=== PATIENT | male | born 1985 ===

== ENCOUNTER 2020-03-21 00:31 | Inpatient (IN) | payer OTHER ==
[~2020-03-21] VITALS: Ht 180.3 cm; Wt 117.5 kg
[2020-03-21 01:16] LABS: Source, Urine Voided
[2020-03-21 01:25] LABS: Bilirubin, Urine Neg (Neg); Blood, Urine 2+ (Neg); Glucose Qualitative, Urine Neg (Neg); Ketones, Urine Neg (Neg); Leukocyte Esterase, Urine Neg (Neg); Nitrite, Urine Neg (Neg); Protein, Urine 1+ (Neg); Urobilinogen, Urine NORM (Normal)
[2020-03-21 01:26] LABS: Appearance, Urine Clear (Clear); Color, Urine Yellow (P-Yellow)
[2020-03-21 01:32] LABS: Bacteria Rare /hpf; Red Blood Cells, Urine 0-2 /hpf (0-2); Squamous Epithelial Cells Not Seen /hpf (Few); White Blood Cells, Urine Rare /hpf (0-5)
[2020-03-21 01:44] LABS: BASOPHILS ABSOLUTE AUTO 0.04 K/mm3 (0.00-0.23); BASOPHILS PERCENT AUTO 0 % (0-2); EOSINOPHILS ABSOLUTE AUTO 0.13 K/mm3 (0.00-0.68); EOSINOPHILS PERCENT AUTO 1 % (0-6); Hematocrit 41.2 % (37.0-53.0); Hemoglobin 12.6 g/dL (13.5-17.5); IMMATURE GRAN PERCENT AUTO 1 % (0-1); LYMPHOCYTES ABSOLUTE AUTO 0.77 K/mm3 (0.84-5.20); LYMPHOCYTES PERCENT AUTO 5 % (21-46); MONOCYTES ABSOLUTE AUTO 1.31 K/mm3 (0.16-1.47); MONOCYTES PERCENT AUTO 8 % (4-13); Mean Corpuscular HGB 23.3 pg (26.0-34.0); Mean Corpuscular HGB Conc 30.6 g/dL (31.5-36.5); Mean Corpuscular Volume 76 fL (80-100); NEUTROPHILS ABSOLUTE AUTO 13.27 K/mm3 (1.96-9.15); NEUTROPHILS PERCENT AUTO 85 % (41-73); Platelet Count 274 K/mm3 (150-400); RDW Coefficient Variation 16.7 % (11.7-14.2); RDW Standard Deviation 45.1 fL (35.1-46.3); White Blood Cell Count 15.62 K/mm3 (4.00-11.30)
[2020-03-21 01:46] LABS: Alanine Aminotransfer (ALT/SGP 345 U/L (12-78); Albumin, Blood 3.9 g/dL (3.4-5.0); Albumin/Globulin Ratio 0.9 (0.8-1.8); Alk Phos 160 U/L (50-136); Anion Gap 6 mmol/L (6-16); Aspartate Aminotrans (AST/SGOT 214 U/L (12-37); Bilirubin, Total 3.2 mg/dL (0.1-1.0); Blood Urea Nitrogen 21 mg/dL (8-24); Bun/Creatinine Ratio 23.3 (12.0-20.0); CO2, Blood 26 mmol/L (21-32); Calcium, Blood 8.7 mg/dL (8.5-10.1); Chloride, Blood 108 mmol/L (98-108); Globulin, Blood 4.4 g/dL (2.2-4.0); Glomerular Filtration Rate >60 (60-); Glucose, Blood 129 mg/dL (70-99); Potassium, Blood 3.6 mmol/L (3.5-5.5); Sodium, Blood 140 mmol/L (136-145); Total Protein, Blood 8.3 g/dL (6.4-8.2)
[2020-03-21 04:13] LABS: CHOL/HDL RATIO 2.6; Cholesterol 120 mg/dL (50-200); HDL Cholesterol 46 mg/dL (>39); LDL/HDL RATIO 1.3; Low Density Lipoprotein Chol 62 mg/dL (0-110); Triglycerides 60 mg/dL (30-140); Very Low Density Lipoprot Chol 12 mg/dL (6-28)
--- NOTE | 2020-03-21 16:04 | NUR ---
ARRIVAL TO UNIT PT ARRIVED TO UNIT FROM ER AT APPROX 1550. PT TRANSFERED SELF FROM [facility], NO WEAKNESS NOTED. PT HAS EYES CLOSED WHILE IN BED REPORTS PAIN A CONSTANT 7/10. DENIES NAUSEA CURRENTLY. GF AT BEDSIDE. PT AA0X4. PAIN LOCALIZED IN EPIGASTRIC AREA. PT EDUCATED EMERGENCY ROOM PHYSICIAN LIGHT USE AND EDUCATED ON NPO STATUS. SWABS PROVIDED FOR COMFORT.
[2020-03-22 02:11] LABS: Influenza A, PCR Negative (NEGATIVE); Influenza B, PCR Negative (NEGATIVE); Resp Syncytial Virus, PCR Negative (NEGATIVE); SARS-Cov-2 (COVID-19) PCR, MMC Negative (NEGATIVE)
[2020-03-22 05:28] LABS: Alanine Aminotransfer (ALT/SGP 163 U/L (12-78); Albumin/Globulin Ratio 0.7 (0.8-1.8); Alk Phos 107 U/L (50-136); Anion Gap 5 mmol/L (6-16); Aspartate Aminotrans (AST/SGOT 46 U/L (12-37); Bilirubin, Total 1.4 mg/dL (0.1-1.0); Blood Urea Nitrogen 29 mg/dL (8-24); Bun/Creatinine Ratio 33.8 (12.0-20.0); CO2, Blood 27 mmol/L (21-32); Calcium, Blood 8.3 mg/dL (8.5-10.1); Chloride, Blood 109 mmol/L (98-108); Creatinine, Blood 0.86 mg/dL (0.60-1.20); Globulin, Blood 4.1 g/dL (2.2-4.0); Glomerular Filtration Rate >60 (60-); Glucose, Blood 133 mg/dL (70-99); Potassium, Blood 3.7 mmol/L (3.5-5.5); Sodium, Blood 141 mmol/L (136-145); Total Protein, Blood 7.1 g/dL (6.4-8.2)
--- NOTE | 2020-03-22 06:10 | NUR ---
SHIFT SUMMARY: BEULAH IS A&OX4. VSS, PT STATES BP ELEVATED D/T PAIN. HE REPORTS HE WAS ON BP MEDICATIONS PRIOR TO HIS GASTRIC SLEEVE, BUT DID NOT REQUIRE THEM AFTER THE WEIGHT LOSS. HE REPORTS ADEQUATE PAIN RELIEF WITH THE TORADOL AND 1 MG OF DILAUDID. HE IS INDEPENDENT IN THE ROOM. IV TO L AC PATENT, HE DID HAVE AN EPISODE OF LEAKING WHEN HIS ARM WAS BENT. HE WAS TOLERATING SMALL AMOUNTS OF CLEARS UNTIL MIDNIGHT WHEN HE WAS MADE NPO. HE USES HIS CALL LIGHT APPROPRIATELY. HIS LIPASE IS IMPROVED TO [id number] FROM >30,000. COVID TEST NEGATIVE. HE IS LYING IN BED WITH HIS CALL LIGHT IN REACH. WILL REPORT TO DAY SHIFT RN.
--- NOTE | 2020-03-22 16:30 | NUR ---
SHIFT SUMMARY PT AA0X4. PT PAIN MANAGED WELL PER EMAR. PT UP AND AMBULATING FREQUENTLY. PAIN LOCALIZED TO RUQ. PT REPORTS GAS PAIN BUT IS UNABLE TO PASS GAS AT THIS TIME. PT TOLERATING CLEAR LIQUIDS WELL. DENIES NAUSEA. PLAN IS TO BE NPO AT MIDNIGHT AND POSSIBLY GO TO PROCEDURE TOMORROW.
--- NOTE | 2020-03-23 05:25 | NUR ---
SHIFT SUMMARY PT RESTED WELL T/O NIGHT. AAOX4. NPO SINCE MIDNIGHT. PAIN CONTROLLED WITH 1MG IV DILAUDID + TORADOL Q6H. NO NAUSEA/EMESIS. INDEPENDENT IN ROOM. GOOD PO INTAKE + OUTPUT. IVF PER ORDERS. AWAITING LIPASE RESULTS THIS AM. CURRENTLY PT RESTING WITH CALL LIGHT IN REACH.
[2020-03-23 05:39] LABS: Alanine Aminotransfer (ALT/SGP 96 U/L (12-78); Albumin, Blood 2.5 g/dL (3.4-5.0); Albumin/Globulin Ratio 0.6 (0.8-1.8); Alk Phos 78 U/L (50-136); Anion Gap 5 mmol/L (6-16); Aspartate Aminotrans (AST/SGOT 27 U/L (12-37); Bilirubin, Total 1.4 mg/dL (0.1-1.0); Blood Urea Nitrogen 22 mg/dL (8-24); CO2, Blood 27 mmol/L (21-32); Calcium, Blood 7.7 mg/dL (8.5-10.1); Chloride, Blood 109 mmol/L (98-108); Creatinine, Blood 0.85 mg/dL (0.60-1.20); Globulin, Blood 4.1 g/dL (2.2-4.0); Glomerular Filtration Rate >60 (60-); Glucose, Blood 109 mg/dL (70-99); Potassium, Blood 3.5 mmol/L (3.5-5.5); Sodium, Blood 141 mmol/L (136-145); Total Protein, Blood 6.6 g/dL (6.4-8.2)
--- NOTE | 2020-03-23 08:21 | NUR ---
C/O 9/10 ABD/EPIGASTRIC PAIN, DILAUDID AND TORADOL GIVEN ORDERED, DENIES ANY NAUSEA, SOB OR ANY OTHER DISCOMFORT, RATES PAIN AT 2/10 AFTER MEDICATED, CONT. TO MONITOR FOR ANY CHANGES.
--- NOTE | 2020-03-23 10:07 | NUR ---
PER DR. CALZADA PT IS NOT GOING TO OR TODAY, OK FOR CL AND NPO AFTER MN, PT NOTIFIED, VERALIZED UNDERSTANDING, DENIES ANY PAIN AT THIS TIME.
--- NOTE | 2020-03-23 16:35 | NUR ---
Per admit trigger, I met with Mr. Perez to offer information on advanced care planning. He had already been given and Advanced Directive packet and plans on completing with family at later time. He is Yazdanism and will appreciate Father Boo visits. I will remain available.
[2020-03-23 18:08] LABS: BASOPHILS ABSOLUTE AUTO 0.04 K/mm3 (0.00-0.23); BASOPHILS PERCENT AUTO 0 % (0-2); EOSINOPHILS ABSOLUTE AUTO 0.08 K/mm3 (0.00-0.68); EOSINOPHILS PERCENT AUTO 1 % (0-6); Hemoglobin 10.6 g/dL (13.5-17.5); IMMATURE GRAN ABSOLUTE AUTO 0.06 K/mm3 (0.00-0.10); IMMATURE GRAN PERCENT AUTO 0 % (0-1); LYMPHOCYTES ABSOLUTE AUTO 0.78 K/mm3 (0.84-5.20); LYMPHOCYTES PERCENT AUTO 5 % (21-46); MONOCYTES ABSOLUTE AUTO 1.55 K/mm3 (0.16-1.47); MONOCYTES PERCENT AUTO 11 % (4-13); Mean Corpuscular HGB 23.4 pg (26.0-34.0); Mean Corpuscular HGB Conc 30.3 g/dL (31.5-36.5); Mean Corpuscular Volume 77 fL (80-100); Mean Platelet Volume 10.7 fL (9.1-12.4); NEUTROPHILS ABSOLUTE AUTO 12.07 K/mm3 (1.96-9.15); NEUTROPHILS PERCENT AUTO 83 % (41-73); Platelet Count 196 K/mm3 (150-400); RDW Coefficient Variation 16.9 % (11.7-14.2); RDW Standard Deviation 46.9 fL (35.1-46.3); Red Blood Cell Count 4.53 M/mm3 (4.30-5.90); White Blood Cell Count 14.58 K/mm3 (4.00-11.30)
--- NOTE | 2020-03-23 19:06 | NUR ---
SUMMARY REPORTS PAIN IS TOLERABLE WITH IV PAIN MEDS, DENIES ANY NAUSEA, NO SURGERY TODAY, NPO AFTER MN AND PLAN FOR SURGERY TOMORROW PER DR. CALZADA, ABD CT SCAN DONE THIS AFTERNOON DUE TO FEVERS PER DR. TRAN, DR. TRAN HAS SPOKEN TO PT REGARDING RESULTS, AMBULATED DOWN THE HALLS TODAY, TOLERATED WELL, NO ACUTE CHANGES THIS SHIFT.
--- NOTE | 2020-03-24 04:00 | NUR ---
SHIFT SUMMARY: PT HAS BEEN NPO SINCE MIDNIGHT FOR SURGERY TODAY. PAIN BEING MANAGED WITH TORADOL AND 1MG DILAUDID Q6 PER EMAR. DENIES NAUSEA THROUGHOUT NIGHT. FEBRILE WITH MAX TEMP 101.2. TACHY AT 107. IV ABX AND FLUIDS INFUSING PER ORDERS. PT INDEPENDENT IN ROOM. VOIDING WELL. CURRENTLY APPEARS TO BE RESTING.
[2020-03-24 05:29] LABS: Hemoglobin 9.7 g/dL (13.5-17.5); Mean Corpuscular HGB 23.4 pg (26.0-34.0); Mean Corpuscular HGB Conc 30.3 g/dL (31.5-36.5); Mean Corpuscular Volume 77 fL (80-100); Mean Platelet Volume 11.1 fL (9.1-12.4); Platelet Count 193 K/mm3 (150-400); RDW Coefficient Variation 16.9 % (11.7-14.2); Red Blood Cell Count 4.15 M/mm3 (4.30-5.90); White Blood Cell Count 13.04 K/mm3 (4.00-11.30)
[2020-03-24 05:46] LABS: Albumin, Blood 2.3 g/dL (3.4-5.0); Anion Gap 6 mmol/L (6-16); Blood Urea Nitrogen 18 mg/dL (8-24); Bun/Creatinine Ratio 28.7 (12.0-20.0); CO2, Blood 26 mmol/L (21-32); Calcium, Blood 7.6 mg/dL (8.5-10.1); Chloride, Blood 111 mmol/L (98-108); Creatinine, Blood 0.63 mg/dL (0.60-1.20); Glomerular Filtration Rate >60 (60-); Glucose, Blood 90 mg/dL (70-99); Phosphorus, Blood 1.6 mg/dL (2.5-4.9); Potassium, Blood 3.3 mmol/L (3.5-5.5); Sodium, Blood 143 mmol/L (136-145)
--- NOTE | 2020-03-24 13:22 | NUR ---
PT TRANSFERED TO [facility] VIA GURNY FROM FLOOR. History, Chart, Medications and Allergies reviewed before start of procedure. Lungs clear T/O to Auscultation. Patient confirms NPO status and agrees with scheduled surgery. Pre-Op teaching done. Pt verbalizes understanding. Patient States Post-Procedure ride home has been arranged.
--- NOTE | 2020-03-24 15:41 | NUR ---
Pt. is in surgery when I visited and family in the room , hope to visit again.
--- NOTE | 2020-03-24 16:22 | NUR ---
PT ARRIVED BACK FROM SURGERY AT 1620. HE IS ALERT AND ORIENTED. HE RATES HIS PAIN AT 5/10 AFTER TRANSFERRING TO THE BED FROM THE [facility]. BP ELEVATED, WILL CONTINUE TO MONITOR.
--- NOTE | 2020-03-24 18:07 | NUR ---
SHIFT SUMMARY PT HAD A LAP ALEX WITH DR. CALZADA TODAY. PT IS TOLERATING CLEAR LIQUIDS AND CAN ADVANCE TO LOW FAT TOLERATED. PT ENCOURAGED TO MAINTAIN ON CLEAR LIQUID UNTIL BREAKFAST TOMORROW. PAIN MANAGED WITH IV MEDICATION. PT'S S/O AT THE BEDSIDE FOR SUPPORT. VSS. WILL MONITOR UNTIL REPORT TO ONCOMING RN.
--- NOTE | 2020-03-25 05:03 | NUR ---
SHIFT SUMMARY: PT POD#1 FOR LAP ALEX. LAP SITES APPEAR WNL. ACTIVE BT THROUGHOUT. PT AMBULATING IN HALLWAY AND INDEPENDENT IN ROOM. REPORTS PASSING FLATUS. TOLERATING LOW FAT DIET. DENIES N/V THIS SHIFT. AFEBRILE. DRINKING PLENTY OF FLUIDS. IVF TKO WITH ABX INFUSING PER ORDERS. PAIN BEING MANAGED WITH DILAUDID AND TORADOL PER EMAR. PLAN FOR POSSIBLE DISCHARGE HOME TODAY.
[2020-03-25 06:31] LABS: Hematocrit 30.6 % (37.0-53.0); Hemoglobin 9.3 g/dL (13.5-17.5); Mean Corpuscular HGB 23.4 pg (26.0-34.0); Mean Corpuscular HGB Conc 30.4 g/dL (31.5-36.5); Mean Corpuscular Volume 77 fL (80-100); Mean Platelet Volume 11.3 fL (9.1-12.4); Platelet Count 231 K/mm3 (150-400); RDW Coefficient Variation 16.9 % (11.7-14.2); Red Blood Cell Count 3.98 M/mm3 (4.30-5.90); White Blood Cell Count 13.38 K/mm3 (4.00-11.30)
[2020-03-25 06:52] LABS: Albumin, Blood 2.3 g/dL (3.4-5.0); Anion Gap 4 mmol/L (6-16); Blood Urea Nitrogen 16 mg/dL (8-24); Bun/Creatinine Ratio 29.1 (12.0-20.0); CO2, Blood 27 mmol/L (21-32); Calcium, Blood 7.7 mg/dL (8.5-10.1); Chloride, Blood 110 mmol/L (98-108); Creatinine, Blood 0.55 mg/dL (0.60-1.20); Glomerular Filtration Rate >60 (60-); Glucose, Blood 119 mg/dL (70-99); Phosphorus, Blood 2.2 mg/dL (2.5-4.9); Potassium, Blood 3.8 mmol/L (3.5-5.5); Sodium, Blood 141 mmol/L (136-145)
[2020-03-25] MEDS ORDERED: AMLO5 PO (11:16)
[2020-03-25] MEDS ORDERED: Percocet 5-3251 EACH PO (11:17)
== END 2020-03-25 11:45 | disposition home or self-care (01) | DRG 418 ==
LOC: ER 00:31 → ERHOLD 03:54 → SURS 03:54
PROVIDERS: Emergency Medicine; Internal Medicine; Surgery; ADMIT Internal Medicine
PROC: 3E023BZ Introduction of Anesthetic Agent into Muscle, Percutaneous Approach (ICD-10-PCS; 2020-03-24)
PROC: BF532Z0 Other Imaging of Gallbladder and Bile Ducts using Fluorescing Agent, Intraoperative (ICD-10-PCS; 2020-03-24)
PROC: 0FT44ZZ Resection of Gallbladder, Percutaneous Endoscopic Approach (ICD-10-PCS; principal; 2020-03-24 13:15)
DX: K85.10 Biliary acute pancreatitis without necrosis or infection (principal); R18.8 Other ascites; E66.9 Obesity, unspecified; Z98.84 Bariatric surgery status; I10 Essential (primary) hypertension; K66.0 Peritoneal adhesions (postprocedural) (postinfection); E83.39 Other disorders of phosphorus metabolism; Z68.36 Body mass index [BMI] 36.0-36.9, adult
CPT/HCPCS: 0241U; 36415; 74177; 74181; 74300; 76705; 80053; 80061; 80069; 81001; 83605; 83690; 85025; 85027; 87040; 88304; 96361; 96365; 96375; 96376; 99285-25; A9270; C1729; J0696; J1100; J1170; J1650; J1885; J2185; J2250; J2270; J2405; J2704; J3010; J7030; J7060; J7120; Q9967

== ENCOUNTER 2020-05-04 05:57 | Emergency (ER) | payer OTHER ==
[~2020-05-04] VITALS: Ht 180.3 cm; Wt 113.4 kg
[~2020-05-04 05:57] MED LIST: AMLO5 PO; Percocet 5-3251 EACH PO
[2020-05-04 06:49] LABS: BASOPHILS ABSOLUTE AUTO 0.05 K/mm3 (0.00-0.23); BASOPHILS PERCENT AUTO 1 % (0-2); EOSINOPHILS ABSOLUTE AUTO 0.61 K/mm3 (0.00-0.68); EOSINOPHILS PERCENT AUTO 8 % (0-6); Hematocrit 35.9 % (37.0-53.0); Hemoglobin 11.2 g/dL (13.5-17.5); IMMATURE GRAN ABSOLUTE AUTO 0.02 K/mm3 (0.00-0.10); IMMATURE GRAN PERCENT AUTO 0 % (0-1); LYMPHOCYTES ABSOLUTE AUTO 1.85 K/mm3 (0.84-5.20); LYMPHOCYTES PERCENT AUTO 24 % (21-46); MONOCYTES ABSOLUTE AUTO 0.65 K/mm3 (0.16-1.47); MONOCYTES PERCENT AUTO 8 % (4-13); Mean Corpuscular HGB 23.9 pg (26.0-34.0); Mean Corpuscular HGB Conc 31.2 g/dL (31.5-36.5); Mean Corpuscular Volume 77 fL (80-100); Mean Platelet Volume 10.6 fL (9.1-12.4); NEUTROPHILS ABSOLUTE AUTO 4.59 K/mm3 (1.96-9.15); NEUTROPHILS PERCENT AUTO 59 % (41-73); Platelet Count 278 K/mm3 (150-400); RDW Coefficient Variation 16.2 % (11.7-14.2); RDW Standard Deviation 44.7 fL (35.1-46.3); Red Blood Cell Count 4.69 M/mm3 (4.30-5.90); White Blood Cell Count 7.77 K/mm3 (4.00-11.30)
[2020-05-04 07:07] LABS: Alanine Aminotransfer (ALT/SGP 23 U/L (12-78); Albumin, Blood 3.5 g/dL (3.4-5.0); Albumin/Globulin Ratio 0.8 (0.8-1.8); Alk Phos 91 U/L (50-136); Anion Gap 5 mmol/L (6-16); Aspartate Aminotrans (AST/SGOT 18 U/L (12-37); Bilirubin, Total 0.6 mg/dL (0.1-1.0); Blood Urea Nitrogen 17 mg/dL (8-24); CO2, Blood 26 mmol/L (21-32); Calcium, Blood 8.5 mg/dL (8.5-10.1); Chloride, Blood 110 mmol/L (98-108); Creatinine, Blood 0.61 mg/dL (0.60-1.20); Globulin, Blood 4.5 g/dL (2.2-4.0); Glomerular Filtration Rate >60 (60-); Glucose, Blood 113 mg/dL (70-99); Potassium, Blood 3.4 mmol/L (3.5-5.5); Sodium, Blood 141 mmol/L (136-145)
[2020-05-04 08:47] LABS: Source, Urine Clean Catch
[2020-05-04 08:55] LABS: Appearance, Urine Clear (Clear); Bilirubin, Urine Neg (Neg); Blood, Urine Neg (Neg); Color, Urine Pale Yellow (P-Yellow); Glucose Qualitative, Urine Neg (Neg); Ketones, Urine Neg (Neg); Leukocyte Esterase, Urine Neg (Neg); Nitrite, Urine Neg (Neg); Protein, Urine Neg (Neg); Urobilinogen, Urine NORM (Normal)
[2020-05-04] MEDS ORDERED: OXYACE7.5T PO (09:21)
== END 2020-05-04 09:33 | disposition home or self-care (01) ==
LOC: ER 05:57
PROVIDERS: Emergency Medicine
DX: K86.2 Cyst of pancreas (principal); K86.89 Other specified diseases of pancreas; D50.9 Iron deficiency anemia, unspecified; Z79.899 Other long term (current) drug therapy; Z90.49 Acquired absence of other specified parts of digestive tract
CPT/HCPCS: 36415; 74177; 80053; 81003; 83690; 85025; 96374-59; 96375; 96376; 99284-25; J1885; J2270; J2405; J7030; Q9967